=== PATIENT | female | born 1960 | race Caucasian/White ===

== ENCOUNTER → 2018-03-26 23:01 | Outpatient (REF) | payer OTHER, MEDICAID, SELFPAY ==
[2018-03-26 23:27] LABS: Add Manual Diff / Slide Review NO; Basophils Percent Auto 0.3 % (0-2); Eosinophils Percent Auto 1.1 % (2-4); Hematocrit 45.1 % (36-46); Hemoglobin 15.3 g/dL (12.0-16.0); Lymphocytes Percent Auto 35.7 % (25-40); Mean Corpuscular Hemoglobin 31.4 PG (26-34); Mean Corpuscular Volume 92.3 fL (80-100); Monocytes Percent Auto 8.7 % (3-14); Neutrophils Absolute Auto 4300 /uL (3000-5900); Neutrophils Percent Auto 54.2 % (50-75); Platelet Count 258 X10^3/uL (150-400); Red Blood Cell Count 4.88 X10^6/uL (4.0-5.2); Red Cell Distribution Width 13.3 % (11.6-14.8); White Blood Cell Count 7.9 X10^3/uL (4.5-11.0)
[2018-03-27 00:02] LABS: Erythrocyte Sedimentation Rate 3 MM/HR (0-20)
[2018-03-27 00:58] LABS: Alanine Aminotransferase 22 IU/L (9-52); Albumin 4.5 g/dL (3.5-5.0); Albumin Globulin Ratio 1.8 (1.0-2.8); Alkaline Phosphatase 101 U/L (38-126); Aspartate Aminotransferase 24 IU/L (14-36); BUN Creatinine Ratio 22.9 (6-22); Bilirubin Total 0.2 mg/dL (0.2-1.3); Blood Urea Nitrogen 16 mg/dL (7-17); Calcium 9.8 mg/dL (8.4-10.2); Carbon Dioxide 25 mmol/L (22-32); Chloride 106 mmol/L (98-107); Estimated Glomerular Filt Rate > 60.0 mL/min (>60); Globulin 2.5 g/dL (1.7-4.1); Glucose 85 mg/dL (70-100); HEMOLYSIS < 15 (0-50); Potassium 4.4 mmol/L (3.4-5.1); Sodium 146 mmol/L (137-145)
[2018-03-27 00:59] LABS: C-Reactive Protein Quant < 0.5 mg/dL (<1.0)
[2018-03-27 01:22] LABS: Free T4, Direct Thyroxine 0.71 ng/dL (0.78-2.19)
[2018-03-27 01:29] LABS: Hemoglobin A1C% w Est Avg Glu 5.3 % (4.0-6.0)
[2018-03-27 01:35] LABS: Thyroid Stimulating Hormone 2.34 uIU/mL (0.47-4.68)
[2018-03-27 01:39] LABS: Ferritin 18.1 ng/mL (11.1-264)
[2018-03-28 14:07] LABS: Anti Thyroglobulin Antibody < 1 IU/mL (< 2); Thyroid Peroxidase Antibodies < 1 IU/mL (< 9)
[2018-03-28 14:27] LABS: Triiodothyronine T3 Total 115 ng/dL (76-181)
[2018-03-29 08:59] LABS: EBV Virus IgM Ab < 36.00 U/mL (< 36.00)
[2018-03-29 14:02] LABS: Insulin Level Total 6.3 uIU/mL (2.0-19.6)
[2018-03-31 23:10] LABS: ANA Screen NEGATIVE (Negative); DNA Antibody Crithidia IFA NEGATIVE (Negative); Rheumatoid Factor <14 IU/mL; Sjogren Antiboday SS-A <1.0 NEG AI (<1.0 NEGATIVE); Sjogren Antiboday SS-B <1.0 NEG AI (<1.0 NEGATIVE); Sm Antibody <1.0 NEG AI (<1.0 NEGATIVE); Sm/RNP Antibody <1.0 NEG AI (<1.0 NEGATIVE)
[2018-04-05 20:26] LABS: Adiponectin 13 ug/mL
== END ==
LOC: LAB 23:01
PROVIDERS: Visit Provider Naturopath
DX: R53.82 Chronic fatigue, unspecified (principal); E03.9 Hypothyroidism, unspecified
CPT/HCPCS: 80053; 82728; 83036; 83520; 83525; 84439; 84443; 84480; 84481; 85025; 85651; 86038; 86140; 86376; 86430; 86663; 86664; 86665; 86800